=== PATIENT | female | born 1980 | race Caucasian/White ===

== ENCOUNTER → 2024-04-08 14:48 | Outpatient (REF) | payer OTHER, SELFPAY | LOC: HWWDC 14:48 | PROVIDERS: ATTENDING PHYSICIAN Nurse Practitioner Family | DX: Z12.31 Encounter for screening mammogram for malignant neoplasm of breast (principal) | CPT/HCPCS: 77063; 77067 ==

== ENCOUNTER → 2024-09-16 14:22 | Outpatient (REF) | payer OTHER, SELFPAY | LOC: EMG 14:22 | PROVIDERS: ATTENDING PHYSICIAN Nurse Practitioner Family | DX: R20.2 Paresthesia of skin (principal) | CPT/HCPCS: 95886; 95910 ==

== ENCOUNTER → 2025-06-25 14:35 | Outpatient (REF) | payer OTHER, SELFPAY | LOC: HWWDC 14:35 | PROVIDERS: ATTENDING PHYSICIAN Nurse Practitioner Family | DX: Z12.31 Encounter for screening mammogram for malignant neoplasm of breast (principal) | CPT/HCPCS: 77063; 77067 ==